=== PATIENT | female | born 1950 | race Caucasian/White ===

== ENCOUNTER 2018-08-18 08:38 | Observation (INO) | payer MEDICARE, MEDICAID ==
[~2018-08-18] VITALS: Ht 170.2 cm; Wt 87.5 kg
[2018-08-18 09:38] VITALS: BP 120/79
[2018-08-18] MEDS ORDERED: MORPHINE PO (10:02)
[2018-08-18] MEDS ORDERED: FURO20TA3 PO (10:02)
[2018-08-18] MEDS ORDERED: GABA100C PO (10:02)
[2018-08-18] MEDS ORDERED: POTA10TA5 PO (10:02)
[2018-08-18] MEDS ORDERED: DULO30CA2 PO (10:02)
[2018-08-18] MEDS ORDERED: GABA300C10 PO (10:02)
[2018-08-18] MEDS ORDERED: OMEP40CA6 PO (10:02)
[2018-08-18] MEDS ORDERED: CHOL100015 PO (10:08)
[2018-08-18] MEDS ORDERED: ASPI-496 PO (10:08)
[2018-08-18] MEDS ORDERED: CYAN10005 PO (10:08)
[2018-08-18] MEDS ORDERED: OXYB5TAB7 PO (10:08)
[2018-08-18] MEDS ORDERED: TIOT18CA INH (10:08)
[2018-08-18] MEDS ORDERED: BUDE180A INH (10:08)
[2018-08-18] MEDS ORDERED: IRON PO (10:08)
[2018-08-18] MEDS ORDERED: TOPI50TA8 PO (10:08)
[2018-08-18] MEDS ORDERED: LACT1CAP35 PO (10:09)
[2018-08-18] MEDS ORDERED: BIVALIRUDIN 250 MG ONE (10:38)
[2018-08-18] MEDS ORDERED: LIDOCAINE-MPF 1%, 5ML ONE (10:38)
[2018-08-18] MEDS ORDERED: HEPARIN 1,000 UNITS/ML, 10ML ONE (10:38)
[2018-08-18] MEDS ORDERED: NITROGLYCERIN 5 MG/ML, 10ML ONE (10:38)
[2018-08-18] MEDS ORDERED: VERAPAMIL 2.5 MG/ML, 2ML ONE (10:38)
[2018-08-18] MEDS ORDERED: FENTANYL PF 100 MCG/2ML ONE (10:38)
[2018-08-18] MEDS ORDERED: MIDAZOLAM 1 MG/ML, 5ML ONE (10:38)
[2018-08-18] MEDS ORDERED: TICAGRELOR 90 MG TABLET ONE (10:38)
[2018-08-18 10:40] LABS: CHLORIDE 107 mmol/L (98-107)
[2018-08-18 10:44] LABS: ANION GAP 7 mmol/L (5-15); CALCIUM 8.6 mg/dL (8.5-10.1); CREATININE 0.77 mg/dL (0.55-1.02)
[2018-08-18 10:48] LABS: MEAN CORPUSCULAR HEMOGLOBIN 29.9 pg (27.0-34.8); MEAN CORPUSCULAR HGB CONC 32.2 g/dL (32.4-35.8); MEAN CORPUSCULAR VOLUME 92.8 fL (80-100); MEAN PLATELET VOLUME 7.6 fL (7.4-10.4); PLATELET COUNT 764 x10^3/uL (130-400); RED BLOOD COUNT 4.37 x10^6/uL (3.82-5.3); RED CELL DISTRIBUTION WIDTH 15.9 % (9.6-15.2)
[2018-08-18] MEDS ORDERED: SODIUM CHLORIDE 0.9% 1,000 ML IV SCH (11:44)
[2018-08-18 11:50] VITALS: BP 122/83
[2018-08-18] MEDS: DULOXETINE 30 MG CAPSULE.DR PO SCH (12:00)
[2018-08-18] MEDS: GABAPENTIN 100 MG CAPSULE PO SCH (12:00)
[2018-08-18] MEDS: ASPIRIN 81 MG TABLET EC PO SCH (12:00)
[2018-08-18] MEDS: BUDESONIDE 0.5 MG/2 ML INHA NPPB SCH ×2 (13:00→21:00)
[2018-08-18 14:35] VITALS: BP 125/75
[2018-08-18 20:05] VITALS: BP 122/68
[2018-08-18] MEDS ORDERED: GABAPENTIN 300 MG CAPSULE PO SCH (21:00)
[2018-08-19 01:15] VITALS: BP 132/79
[2018-08-19 08:44] VITALS: BP 129/69
[2018-08-19] MEDS: DULOXETINE 30 MG CAPSULE.DR PO SCH (08:47)
[2018-08-19] MEDS: ASPIRIN 81 MG TABLET EC PO SCH (08:48)
[2018-08-19] MEDS: GABAPENTIN 100 MG CAPSULE PO SCH (08:48)
[2018-08-19] MEDS ORDERED: FUROSEMIDE 20 MG TABLET PO SCH (09:00)
[2018-08-19] MEDS ORDERED: OMEPRAZOLE 20 MG CAPSULE.DR PO SCH (09:00)
[2018-08-19] MEDS ORDERED: TOPIRAMATE 25 MG TABLET PO SCH (09:00)
[2018-08-19] MEDS ORDERED: POTASSIUM CHLORIDE 10 MEQ TABLET.ER PO SCH (09:00)
[2018-08-19] MEDS ORDERED: FERROUS SULFATE 325 MG TABLET PO SCH (09:00)
[2018-08-19] MEDS ORDERED: IPRATROPIUM 0.5 MG/2.5 ML INHA NPPB SCH (09:00)
[2018-08-19] MEDS ORDERED: OXYBUTYNIN CHLORIDE 5 MG TABLET PO SCH (09:00)
== END 2018-08-19 11:20 | disposition home or self-care (01) ==
LOC: CACL 08:38 → ORIP 09:30 → 5SO 12:12 → DCLOUNGE 08-19 11:05
PROVIDERS: ADMIT Internal Medicine Cardiovascular Disease; ATTEND Internal Medicine Cardiovascular Disease
DX: R07.9 Chest pain, unspecified (principal); G89.29 Other chronic pain; J44.9 Chronic obstructive pulmonary disease, unspecified; K21.9 Gastro-esophageal reflux disease without esophagitis; F32.9 Major depressive disorder, single episode, unspecified; M81.0 Age-related osteoporosis without current pathological fracture; M17.10 Unilateral primary osteoarthritis, unspecified knee; Z88.8 Allergy status to other drugs, medicaments and biological substances
CPT/HCPCS: 36415; 80048; 85027; 93458; 93571; 99156; C1769; C1887; C1894; G0378; J1644; J2250; J3010; Q9967; J0583